=== PATIENT | male | born 1990 | race Caucasian/White ===

== ENCOUNTER 2016-12-06 19:09 | Emergency (ER) | payer MEDICAID ==
[~2016-12-06 19:09] MED LIST: NOMEDS *; VICODIN 5/500 T1 TAB PO
[2016-12-06 19:23] VITALS: BP 123/85
== END 2016-12-06 19:24 | disposition home or self-care (01) ==
LOC: ER 19:09 → ERCL 19:19
DX: S61.216A Laceration without foreign body of right little finger without damage to nail, initial encounter (principal)